=== PATIENT | male | born 1960 | race Caucasian/White ===

== ENCOUNTER 2016-12-22 20:31 | Inpatient (IN) | payer MEDICARE, OTHER ==
[~2016-12-22] VITALS: Ht 185.4 cm; Wt 101.6 kg
[2016-12-22 20:37] VITALS: BP 191/117; PULSE 74; RESP 24; TEMP 98.5; O2SAT 93
[2016-12-22] MEDS ORDERED: SODIUM CHLOR 0.9% 1000 ML INJ 1,000 ML IV SCH (20:37)
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
[2016-12-22] MEDS ORDERED: ONDANSETRON HCL 4 MG/2 ML VIAL IVP ONE (20:45)
[2016-12-22] MEDS ORDERED: ceFAZolin 2 GM PREMIX 50 ML IV ONE (20:45)
[2016-12-22] MEDS ORDERED: DIPHTH/TETANUS/ACEL PERTUSSIS (BOOSTER) 0.5 ML VIAL/PFS IM ONE (20:45)
[2016-12-22] MEDS ORDERED: MORPHINE SULFATE 4 MG/ML INJ IV ONE (20:45)
[2016-12-22] MEDS ORDERED: VENTAER INH (20:55)
[2016-12-22] MEDS ORDERED: TRIBTAB PO (20:55)
[2016-12-22] MEDS ORDERED: AMOX500T PO (20:55)
[2016-12-22] MEDS ORDERED: ALPR.25 PO (20:55)
[2016-12-22] MEDS ORDERED: ATOR40TA16 PO (20:55)
[2016-12-22] MEDS ORDERED: LIDOCAINE 1%/EPINEPHrine 1:100,000 SOLN 20 ML VIAL INFIL ONE (21:00)
[2016-12-22] MEDS: SODIUM CHLORIDE 0.9% FLUSH 5 ML FLUSH IVF PRN ×2 (21:11→23:01)
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
[2016-12-22 21:20] LABS: AUTOMATED NEUTROPHIL # 6.4 TH/MM3 (1.8-7.7); BASOPHIL # 0.1 TH/MM3 (0-0.2); BASOPHIL % 0.4 % (0.0-2.0); EOSINOPHIL # 0.1 TH/MM3 (0-0.4); EOSINOPHIL % 0.6 % (0.0-4.0); HEMATOCRIT 45.8 % (39.0-51.0); HEMO FLAGS DIFF FINAL; LYMPH % 40.4 % (9.0-44.0); MEAN CELL VOLUME 79.7 FL (80.0-100.0); MEAN CORPUSCULAR HEMOGLOBIN 27.4 PG (27.0-34.0); MEAN CORPUSCULAR HGB CONC 34.4 % (32.0-36.0); NEUT % 51.6 % (16.0-70.0); PLATELET COUNT 271 TH/MM3 (150-450); RED BLOOD COUNT 5.75 MIL/MM3 (4.50-5.90); WHITE BLOOD COUNT 12.4 TH/MM3 (4.0-11.0)
[2016-12-22 21:32] LABS: APTT (PATIENT) 23.6 SEC (24.3-30.1); PROTHROMBIN TIME - PATIENT 10.7 SEC (9.8-11.6)
[2016-12-22 21:51] LABS: ALKALINE PHOSPHATASE 110 U/L (45-117); ALT (GPT) 53 U/L (12-78); ANION GAP 7 MEQ/L (5-15); AST (GOT) 50 U/L (15-37); BICARBONATE 29.2 MEQ/L (21.0-32.0); BLOOD UREA NITROGEN 18 MG/DL (7-18); CHLORIDE 105 MEQ/L (98-107); GLOMERULAR FILTRATION RATE 50 ML/MIN (>89); POTASSIUM 4.2 MEQ/L (3.5-5.1); SODIUM (NA) 141 MEQ/L (136-145); TOTAL BILIRUBIN ADULT 0.6 MG/DL (0.2-1.0)
[2016-12-22] MEDS ORDERED: IOHEXOL 350 MG/ML 10 ML VIAL (for RAD DIAG) IV ONE (22:11)
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
[2016-12-22 22:42] VITALS: BP 178/101; PULSE 87; RESP 18; O2SAT 94
--- NOTE | 2016-12-22 22:47 | PD ---
Physical Exam Date Seen by Provider: Dec 22, 2016 Time Seen by Provider: 22:46 Narrative I was asked by Dr. Fuller to repair laceration the patient's left elbow. Please see his documentation for full history and physical. Data Data Last Documented VS Vital Signs Date Time Temp Pulse Resp B/P Pulse Ox O2 Delivery O2 Flow Rate FiO2 12/22/16 22:42 87 18 178/101 94 Nasal Cannula 2 12/22/16 20:37 98.5 Orders Complete Blood Count With Diff (12/22/16 20:37) Prothrombin Time / Inr (Pt) (12/22/16 20:37) Act Partial Throm Time (Ptt) (12/22/16 20:37) Chest, Single Ap (12/22/16 20:37) Ct Brain W/O Iv Contrast(Rout) (12/22/16 20:37) Ct Cerv Spine W/O Contrast (12/22/16 20:37) Ct Abd/Pel W Iv Contrast(Rout) (12/22/16 20:37) Ct Thorax/ Chest W Iv Contrast (12/22/16 20:37) Iv Access Insert/Monitor (12/22/16 20:37) Ecg Monitoring (12/22/16 20:37) Oximetry (12/22/16 20:37) Oxygen Administration (12/22/16 20:37) Wound Care (12/22/16 20:37) Cefazolin 2 Gm Premix (Ancef 2 Gm Premix (12/22/16 20:45) Morphine Inj (Morphine Inj) (12/22/16 20:45) Ondansetron Inj (Zofran Inj) (12/22/16 20:45) Xbtg-Snz-Iqkubw (Booster) Inj (Boostrix (12/22/16 20:45) Sodium Chlor 0.9% 1000 Ml Inj (Ns 1000 M (12/22/16 20:37) Sodium Chloride 0.9% Flush (Ns Flush) (12/22/16 20:45) Comprehensive Metabolic Panel (12/22/16 20:37) Elbow, Limited (Ap&Lat) (12/22/16 ) Alcohol (Ethanol) (12/22/16 20:42) Lidocai-Epi 1%-1:100,000 Inj (Xylocaine- (12/22/16 21:00) Iohexol 350 Inj (Omnipaque 350 Inj) (12/22/16 22:11) Collar [place] (12/22/16 ) Labs Laboratory Tests Test 12/22/16 20:40 White Blood Count 12.4 TH/MM3 Red Blood Count 5.75 MIL/MM3 Hemoglobin 15.7 GM/DL Hematocrit 45.8 % Mean Corpuscular Volume 79.7 FL Mean Corpuscular Hemoglobin 27.4 PG Mean Corpuscular Hemoglobin 34.4 % Concent Red Cell Distribution Width 15.0 % Platelet Count 271 TH/MM3 Mean Platelet Volume 9.5 FL Neutrophils (%) (Auto) 51.6 % Lymphocytes (%) (Auto) 40.4 % Monocytes (%) (Auto) 7.0 % Eosinophils (%) (Auto) 0.6 % Basophils (%) (Auto) 0.4 % Neutrophils # (Auto) 6.4 TH/MM3 Lymphocytes # (Auto) 5.0 TH/MM3 Monocytes # (Auto) 0.9 TH/MM3 Eosinophils # (Auto) 0.1 TH/MM3 Basophils # (Auto) 0.1 TH/MM3 CBC Comment DIFF FINAL Differential Comment Prothrombin Time 10.7 SEC Prothromb Time International 1.0 RATIO Ratio Activated Partial 23.6 SEC Thromboplast Time Sodium Level 141 MEQ/L Potassium Level 4.2 MEQ/L Chloride Level 105 MEQ/L Carbon Dioxide Level 29.2 MEQ/L Anion Gap 7 MEQ/L Blood Urea Nitrogen 18 MG/DL Creatinine 1.46 MG/DL Estimat Glomerular Filtration 50 ML/MIN Rate Random Glucose 103 MG/DL Calcium Level 8.8 MG/DL Total Bilirubin 0.6 MG/DL Aspartate Amino Transf 50 U/L (AST/SGOT) Alanine Aminotransferase 53 U/L (ALT/SGPT) Alkaline Phosphatase 110 U/L Total Protein 7.7 GM/DL Albumin 3.6 GM/DL Ethyl Alcohol Level LESS THAN 3 MG/DL [facility] Supervised Visit with MICHAEL: No Procedures Procedure Narrative LACERATION LOCATION: Left elbow LENGTH: 3 cm NUMBER OF STITCHES/ADOLFO: 4 simple interrupted sutures REPAIR: The area of the laceration was prepped with Betadine and sterilely draped. The laceration was infiltrated with 1% lidocaine with epinephrine. The wound was copiously irrigated and explored without evidence of foreign body, tendon injury or neurovascular injury. The wound was closed using 4-0 Prolene. This was a single layer repair. A sterile dressing was applied. The patient was advised to keep the dressing clean and dry. Patient tolerated the procedure well. Condition: Stable Edmar,Katty SANCHEZ Dec 22, 2016 22:47
[2016-12-22 22:50] VITALS: O2SAT 93
[2016-12-22] MEDS ORDERED: MORPHINE SULFATE 4 MG/ML INJ IV PUSH ONE (23:00)
[2016-12-22] MEDS ORDERED: IBUP-232 PO (23:08)
[2016-12-22] MEDS ORDERED: NORC5TAB PO (23:08)
[2016-12-22] MEDS ORDERED: ORPH100T99 PO (23:08)
[2016-12-23] VITALS (9 sets, daily range): BP systolic 141–180; BP diastolic 70–98; PULSE 72–88; RESP 16–22; TEMP 97.1–99.4; O2SAT 92–96
[2016-12-23] MEDS ORDERED: ACETAMINOPHEN/HYDROcodone 325 MG/5 MG TAB PO PRN ×2 (01:15→05:30)
[2016-12-23] MEDS ORDERED: ACETAMINOPHEN 325 MG TAB PO PRN (01:15)
[2016-12-23] MEDS ORDERED: ACETAMINOPHEN 650 MG SUPP PR PRN (01:15)
[2016-12-23] MEDS ORDERED: ONDANSETRON HCL 4 MG/2 ML VIAL IV PRN ×2 (01:15→05:30)
[2016-12-23] MEDS ORDERED: SODIUM CHLORIDE 0.9% FLUSH 5 ML FLUSH IVF PRN ×2 (01:15→05:30)
[2016-12-23] MEDS: MORPHINE SULFATE 4 MG/ML INJ IV PUSH PRN ×2 (01:56→23:17)
[2016-12-23] MEDS ORDERED: CHLORHEXIDINE GLUCONATE 2 % 1 PACK (2 CLOTHS) TOP PRN (05:30)
[2016-12-23] MEDS ORDERED: MISCELLANEOUS NURSING INFORMATION XX SCH (05:30)
[2016-12-23] MEDS ORDERED: ENALAPRILAT 1.25 MG/ML VIAL IV PRN (05:30)
[2016-12-23] MEDS ORDERED: MORPHINE SULFATE 4 MG/ML INJ IV PRN (05:30)
[2016-12-23] MEDS: PANTOPRAZOLE SODIUM 40 MG VIAL IVP SCH (05:57)
[2016-12-23] MEDS: SODIUM CHLOR 0.9% 1000 ML INJ 1,000 ML IV SCH ×2 (05:57→15:28)
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
[2016-12-23] MEDS ORDERED: ALBUTEROL SULFATE 90 MCG/ACT HFA 8 GM INHALER INH PRN (08:00)
[2016-12-23] MEDS: DOCUSATE SODIUM 100 MG CAP PO SCH ×2 (08:26→20:02)
[2016-12-23] MEDS: ACETAMINOPHEN/HYDROcodone 325 MG/5 MG TAB PO PRN ×4 (08:26→20:20)
[2016-12-23] MEDS: SODIUM CHLORIDE 0.9% FLUSH 5 ML FLUSH IVF SCH ×2 (08:27→20:02)
[2016-12-23] MEDS: METHOCARBAMOL 500 MG TAB PO SCH ×3 (08:48→21:35)
[2016-12-23] MEDS: BACITRACIN TOP OINT 15 GM TUBE TOP SCH ×3 (08:50→20:02)
[2016-12-23] MEDS ORDERED: NON-FORMULARY DRUG (Olmesartan-Amlodipine-Hydrochlorothiazide (Tribenzor) 1 TAB) PO SCH (09:00)
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
[2016-12-23] MEDS: amLODIPine BESYLATE 5 MG TAB PO SCH (12:43)
[2016-12-23] MEDS: HYDROCHLOROTHIAZIDE 12.5 MG CAP PO SCH (12:43)
[2016-12-23] MEDS: LOSARTAN 50 MG TAB PO SCH (12:43)
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
[2016-12-23] MEDS: ATORVASTATIN 40 MG TAB PO SCH (20:02)
[2016-12-23] MEDS ORDERED: DOCU1CAP39 PO (22:22)
[2016-12-24 04:00] VITALS: BP 152/84; PULSE 80; RESP 16; TEMP 99.8; O2SAT 95
[2016-12-24] MEDS ORDERED: CHLORHEXIDINE GLUCONATE 2 % 1 PACK (2 CLOTHS) TOP SCH (04:00)
[2016-12-24] MEDS: ACETAMINOPHEN/HYDROcodone 325 MG/5 MG TAB PO PRN ×3 (05:33→13:12)
[2016-12-24] MEDS: METHOCARBAMOL 500 MG TAB PO SCH ×3 (05:33→21:12)
[2016-12-24] MEDS: PANTOPRAZOLE SODIUM 40 MG VIAL IVP SCH (05:33)
[2016-12-24 08:00] VITALS: BP 134/77; PULSE 71; RESP 18; TEMP 98.2; O2SAT 91
[2016-12-24] MEDS: amLODIPine BESYLATE 5 MG TAB PO SCH (08:51)
[2016-12-24] MEDS: HYDROCHLOROTHIAZIDE 12.5 MG CAP PO SCH (08:52)
[2016-12-24] MEDS: SODIUM CHLORIDE 0.9% FLUSH 5 ML FLUSH IVF SCH ×2 (08:52→21:13)
[2016-12-24] MEDS: LOSARTAN 50 MG TAB PO SCH (08:52)
[2016-12-24] MEDS: BACITRACIN TOP OINT 15 GM TUBE TOP SCH ×2 (08:52→21:13)
[2016-12-24] MEDS: DOCUSATE SODIUM 100 MG CAP PO SCH (08:52)
[2016-12-24 10:11] LABS: AUTOMATED NEUTROPHIL # 11.7 TH/MM3 (1.8-7.7); BASOPHIL # 0.1 TH/MM3 (0-0.2); BASOPHIL % 0.4 % (0.0-2.0); EOSINOPHIL % 0.2 % (0.0-4.0); HEMATOCRIT 41.2 % (39.0-51.0); HEMO FLAGS DIFF FINAL; LYMPH % 12.8 % (9.0-44.0); LYMPHOCYTE # 1.9 TH/MM3 (1.0-4.8); MEAN CORPUSCULAR HEMOGLOBIN 27.4 PG (27.0-34.0); MEAN CORPUSCULAR HGB CONC 33.8 % (32.0-36.0); MONO % 7.6 % (0.0-8.0); PLATELET COUNT 186 TH/MM3 (150-450); RED BLOOD COUNT 5.09 MIL/MM3 (4.50-5.90); RED CELL DISTRIBUTION WIDTH 15.2 % (11.6-17.2); WHITE BLOOD COUNT 14.8 TH/MM3 (4.0-11.0)
[2016-12-24 10:35] LABS: BICARBONATE 27.6 MEQ/L (21.0-32.0); POTASSIUM 3.4 MEQ/L (3.5-5.1)
[2016-12-24 12:00] VITALS: BP 142/84; PULSE 72; RESP 18; TEMP 98.1; O2SAT 92
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
[2016-12-24] MEDS: KETOROLAC TROMETHAMINE 30 MG/ML (IVP) VIAL IV PUSH SCH ×2 (14:29→21:12)
[2016-12-24] MEDS: LIDOCAINE HCL 5% PATCH TD SCH (14:29)
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
[2016-12-24] MEDS ORDERED: ENOXAPARIN SODIUM 40 MG/0.4 ML SYRINGE SQ SCH (15:00)
[2016-12-24] MEDS: LACTULOSE SYRUP 20 GM/30 ML CUP PO SCH (15:17)
[2016-12-24 16:00] VITALS: BP 129/78; PULSE 77; RESP 18; TEMP 98.1; O2SAT 95
[2016-12-24 18:38] VITALS: O2SAT 95
[2016-12-24 20:00] VITALS: BP 149/83; PULSE 77; RESP 20; TEMP 97.5; O2SAT 96
[2016-12-24] MEDS ORDERED: MAGNESIUM HYDROXIDE SUSP 30 ML CUP PO SCH (21:00)
[2016-12-24] MEDS: ATORVASTATIN 40 MG TAB PO SCH (21:12)
[2016-12-24] MEDS: DOCUSATE SODIUM 50 MG/SENNA 8.6 MG TAB PO SCH (21:12)
[2016-12-24] MEDS: REMOVE OLD PATCH T-DERMAL SCH ×2 (21:13→21:18)
[2016-12-25] VITALS: BP 140/82; PULSE 87; RESP 20; TEMP 96.7; O2SAT 95
[2016-12-25] MEDS: ACETAMINOPHEN/HYDROcodone 325 MG/5 MG TAB PO PRN ×3 (00:03→13:06)
[2016-12-25] MEDS: METHOCARBAMOL 500 MG TAB PO SCH ×2 (06:05→13:05)
[2016-12-25] MEDS: KETOROLAC TROMETHAMINE 30 MG/ML (IVP) VIAL IV PUSH SCH ×2 (06:05→13:06)
[2016-12-25] MEDS: PANTOPRAZOLE SODIUM 40 MG VIAL IVP SCH (06:05)
[2016-12-25 08:00] VITALS: BP 128/82; PULSE 72; RESP 18; TEMP 96.9; O2SAT 91
[2016-12-25] MEDS: LIDOCAINE HCL 5% PATCH TD SCH (08:30)
[2016-12-25] MEDS: DOCUSATE SODIUM 50 MG/SENNA 8.6 MG TAB PO SCH (08:33)
[2016-12-25] MEDS: LOSARTAN 50 MG TAB PO SCH (08:33)
[2016-12-25] MEDS: HYDROCHLOROTHIAZIDE 12.5 MG CAP PO SCH (08:33)
[2016-12-25] MEDS: SODIUM CHLORIDE 0.9% FLUSH 5 ML FLUSH IVF SCH (08:33)
[2016-12-25] MEDS: amLODIPine BESYLATE 5 MG TAB PO SCH (08:33)
[2016-12-25] MEDS: LACTULOSE SYRUP 20 GM/30 ML CUP PO SCH (08:34)
[2016-12-25] MEDS: BACITRACIN TOP OINT 15 GM TUBE TOP SCH (08:34)
[2016-12-25] MEDS ORDERED: BISACODYL 10 MG SUPP RECTAL ONE (09:00)
[2016-12-25] MEDS ORDERED: POTASSIUM CHLORIDE 25 MEQ EFFERVESCENT TAB PO ONE (09:00)
[2016-12-25] MEDS ORDERED: BISACODYL EC 5 MG TABEC PO ONE (09:00)
[2016-12-25 10:10] VITALS: O2SAT 95
[2016-12-25 12:00] VITALS: BP 140/76; PULSE 72; RESP 18; TEMP 97.2; O2SAT 93
[2016-12-25] MEDS ORDERED: LIDO5DIS35 TD (13:00)
[2016-12-25] MEDS ORDERED: MOTR200T4 PO (13:00)
[2016-12-25] MEDS ORDERED: METH500T3 PO (13:00)
[2016-12-25] MEDS ORDERED: HYDR-3516 PO (13:01)
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
[2016-12-26] MEDS ORDERED: PANTOPRAZOLE SOD 40 MG DELAYED RELEASE TAB PO SCH (09:00)
== END 2016-12-25 15:33 | disposition home or self-care (01) | DRG 988 ==
LOC: NEPE 20:31 → NEDA 23:19 → N06B 12-23 04:03 → OBSVTOIN 12-23 05:32
PROVIDERS: ADMIT Surgery; ATTEND Surgery
PROC: 0JQH0ZZ Repair Left Lower Arm Subcutaneous Tissue and Fascia, Open Approach (ICD-10-PCS; principal; 2016-12-23)
DX: S22.42XA Multiple fractures of ribs, left side, initial encounter for closed fracture (principal); J98.11 Atelectasis; R55 Syncope and collapse; I10 Essential (primary) hypertension; S51.012A Laceration without foreign body of left elbow, initial encounter; R07.89 Other chest pain; S40.812A Abrasion of left upper arm, initial encounter; S50.819A Abrasion of unspecified forearm, initial encounter; E78.5 Hyperlipidemia, unspecified; V27.4XXA Motorcycle driver injured in collision with fixed or stationary object in traffic accident, initial encounter; Y92.89 Other specified places as the place of occurrence of the external cause
CPT/HCPCS: 12002; 70450; 71010; 71260; 72125; 73070; 74177; 80048; 80053; 80307; 85025; 85610; 85730; 90471; 90715; 94150; 94640; 94667; 94668; 96365; 96375; 96376; C9113; G0378; J0690; J1650; J1885; J2270; J2405; J7030; L0150; Q9967